=== PATIENT | male | born 1945 | race Caucasian/White ===

== ENCOUNTER → 2021-09-11 | Outpatient (CLI) | payer MEDICARE ==
[2021-09-11 10:15] LABS: African American GFR (CKD) >90 (>60 ml/min/1.73 sqM); Blood Urea Nitrogen 17 mg/dL (9-20); Non-African American GFR(CKD) >90 (>60 ml/min/1.73 sqM)
--- NOTE | 2021-09-11 23:09 | CT ---
EXAMINATION TYPE: CT Chest Abd Pelvis w con DATE OF EXAM: 09/11/2021 COMPARISON: None available HISTORY: Esophageal CA CT DLP: 1277.60 mGycm. Automated Exposure Control for Dose Reduction was Utilized. TECHNIQUE: Multiple contiguous axial CT images of the chest, abdomen, and pelvis were obtained from t he lung apices through the pubic symphysis with IV Contrast, patient injected with 100 mL of Isovue 3 00. 2-D sagittal and coronal reformatted images were obtained. FINDINGS: Chest: Postsurgical changes consistent with partial esophagectomy with gastric pull-through. Cardiac size appears within normal limits. No pericardial effusion. Moderate coronary artery calcific ations. Thoracic aorta and main pulmonary arteries are of normal caliber. No mediastinal, hilar, or a xillary lymphadenopathy. Central airways are normal course and caliber. Lungs appear clear. No pleural effusion or pneumothora x. No suspicious pulmonary nodules. Abdomen/pelvis: Liver, spleen, pancreas, and bilateral adrenal glands have an unremarkable enhanced appearance. Gallbladder is present and contains hyperattenuating material possibly sludge. No definite intrahepat ic or extrahepatic biliary ductal dilatation. Kidneys are symmetric in size without hydronephrosis. No renal or ureteral calculi. Exophytic right r enal cyst measuring 37 mm. Urinary bladder appears over distended and otherwise unremarkable. Moderately dilated prostate gland. No free fluid. Visualized bowel is of normal caliber without evidence of obstruction. No significant mesenteric infl ammation. Appendix appears unremarkable. No free air. Mild scattered atherosclerotic vascular calcifications of the normal aorta without aneurysm. No intra -abdominal or retroperitoneal lymphadenopathy. Small fat-containing umbilical hernia which also conta ins small amount of fluid. Musculoskeletal: Visualized osseous structures appear intact. Moderate multilevel degenerative changes of the thoracol umbar spine with diffuse idiopathic skeletal hyperostosis throughout the thoracic spine. IMPRESSION: Postsurgical changes consistent with partial esophagectomy with gastric pull-through. No evidence of disease recurrence.
== END | disposition home or self-care (01) ==
LOC: RADCTMAIN 08:49
PROVIDERS: ATTEND Internal Medicine Hematology & Oncology
DX: C15.5 Malignant neoplasm of lower third of esophagus (principal); Z90.49 Acquired absence of other specified parts of digestive tract
CPT/HCPCS: 82565; 84520; 71260; 74177; 36415; Q9967

== ENCOUNTER → 2022-01-23 | Outpatient (CLI) | payer MEDICARE ==
[2022-01-23 11:39] LABS: African American GFR (CKD) >90 (>60 ml/min/1.73 sqM); Blood Urea Nitrogen 11 mg/dL (9-20); Non-African American GFR(CKD) >90 (>60 ml/min/1.73 sqM)
--- NOTE | 2022-01-24 15:07 | CT ---
EXAMINATION TYPE: CT ChestAbdPelvis w con DATE OF EXAM: 01/23/2022 INDICATION: Follow up on esophageal cancer COMPARISON: 09/11/2021 CT DLP: 1333.8 mGycm CONTRAST: Performed with Oral Contrast and with IV Contrast, patient injected with 70 mL of Isovue 300. TECHNIQUE: Axial images at 5 mm thick sections. Reconstructed images in the coronal plane. Delayed images through the kidneys. FINDINGS: CT CHEST: Portion of the thyroid visualized is normal. Some minimal pneumonitis changes within the superior segment right lower lobe. Tiny nodule medially w ithin the right midlung 0.6 cm. Series 38. This was present previously. No enlarged mediastinal or hilar adenopathy is evident. The ascending aorta diameter at the level of the main pulmonary artery is 3.9 cm. The main pulmonary artery diameter at the bifurcation is 2.4 cm. There is a gastric pull-through. Reflux into the esophagus is evident. CT ABDOMEN: Liver: Normal Spleen: Normal. Small splenule may be at the splenic hilum. Pancreas: Diffusely atrophic Adrenal glands: The adrenal glands are normal. Gallbladder: Normal Kidneys: No masses are evident. No hydronephrosis is present. There is an exophytic cyst on the pos terior superior pole right kidney measuring 3.9 cm and 43 Hounsfield units. This was present previous ly. Delayed images were obtained through the kidneys, which remain unremarkable. Aorta: Vascular calcification is within the aorta. Inferior vena cava: Normal. CT PELVIS: Loops of bowel within the abdomen and pelvis are normal. Diverticulosis is present within the sig moid colon. There are loops of bowel lacking oral contrast or incompletely distended limiting their e valuation. Appendix: Normal as visualized. Urinary bladder: Normal. Genitourinary structures: Prostate is prominent. Osseous structures: No suspicious lytic or sclerotic lesions. Degenerative disc changes is present at the L5-S1 level IMPRESSIONS: 1. 1. Postsurgical gastric pull-through. Gastroesophageal reflux into the distal esophagus is evident. 2. No suspicious change suggestive recurrent or metastatic esophageal cancer 3. Diverticulosis without acute diverticulitis. 4. Stable right renal cyst
== END | disposition home or self-care (01) ==
LOC: RADCTMAIN 10:10
PROVIDERS: ATTEND Internal Medicine Hematology & Oncology
DX: C15.5 Malignant neoplasm of lower third of esophagus (principal); K21.9 Gastro-esophageal reflux disease without esophagitis; N28.1 Cyst of kidney, acquired; K57.30 Diverticulosis of large intestine without perforation or abscess without bleeding
CPT/HCPCS: 82565; 84520; 71260; 74177; 36415; Q9967 ×2

== ENCOUNTER → 2022-04-28 | Outpatient (CLI) | payer MEDICARE ==
[2022-04-28 10:07] LABS: African American GFR (CKD) >90 (>60 ml/min/1.73 sqM); Blood Urea Nitrogen 16 mg/dL (9-20); Non-African American GFR(CKD) >90 (>60 ml/min/1.73 sqM)
--- NOTE | 2022-04-28 11:46 | CT ---
EXAMINATION TYPE: CT ChestAbdPelvis w con DATE OF EXAM: 04/28/2022 COMPARISON: 01/23/2022 HISTORY: Malignant neoplasm of lower third of esophagus CT DLP: 1399.00 mGycm CONTRAST: CT scan of the chest, abdomen and pelvis is performed with Oral Contrast and with IV Contrast, patien t injected with 70 ml mL of Isovue 300. CT Chest: LUNGS: The lungs are clear and free of infiltrate or atelectasis. No pulmonary nodule or mass is det ected. No pleural effusion or CT evidence of interstitial lung disease. MEDIASTINUM: Again noted is evidence of esophagectomy with gastric pull-through procedure. Contrast is seen within the neoesophagus up to the level of the aortic arch. Thoracic aorta is of normal calib er. The heart is not enlarged. No evidence for mediastinal mass or adenopathy. HILAR STRUCTURES: No evidence for mass. No hilar adenopathy is appreciated. OTHER: No significant abnormality. CONTRAST CT ABDOMEN AND PELVIS FINDINGS: LIVER/GB: No calcified gallstones. No space occupying hepatic lesion. Biliary tree is of normal ca liber. PANCREAS: No inflammation. No distinct mass. SPLEEN: No splenic enlargement. No lesion seen. ADRENALS: No nodule. No thickening. KIDNEYS/BLADDER: No hydronephrosis. No nephrolithiasis. Simple cyst right kidney is unchanged. BOWEL: Normal appendix. Normal bowel caliber. No inflammation. GENITAL ORGANS: No gross abnormality. LYMPH NODES: No greater than 1cm abdominal or pelvic lymph nodes are appreciated. AORTA: No significant abnormality. OSSEOUS STRUCTURES: Degenerative changes throughout the thoracic and lumbar spine. OTHER: No significant additional abnormality is seen. IMPRESSION: 1. Postoperative changes of esophagectomy and gastric pull-through without evidence for recurrent dis ease or metastatic disease.
== END | disposition home or self-care (01) ==
LOC: RADCTMAIN 09:15
PROVIDERS: ATTEND Internal Medicine Hematology & Oncology
DX: C15.5 Malignant neoplasm of lower third of esophagus (principal); Z90.49 Acquired absence of other specified parts of digestive tract
CPT/HCPCS: 82565; 84520; 71260; 74177; 36415; Q9967

== ENCOUNTER → 2022-09-09 | Outpatient (CLI) | payer MEDICARE ==
[2022-09-09 12:39] LABS: African American GFR (CKD) >90 (>60 ml/min/1.73 sqM); Blood Urea Nitrogen 16 mg/dL (9-20); Non-African American GFR(CKD) >90 (>60 ml/min/1.73 sqM)
--- NOTE | 2022-09-09 14:50 | CT ---
EXAMINATION TYPE: CT ChestAbdPelvis w con DATE OF EXAM: 09/09/2022 COMPARISON: 05/08/2022, 01/23/2022 HISTORY: 76-year-old male C15.5, f/u lower third esophageal ca TECHNIQUE: Contiguous axial scanning of the chest, abdomen, and pelvis performed with IV Contrast, pa tient injected with 100 mL of Isovue 300. Delayed images through the kidneys were obtained. Coronal/s agittal reconstructions performed. CT DLP: 1509.3 mGycm Automated exposure control for dose reduction was used. FINDINGS: CHEST: Heart normal size without pericardial effusion. Three-vessel coronary artery calcifications are prese nt in remarkable for coronary artery disease. Ectasia of the ascending aorta 3.8 cm. Conventional arch vessel branching anatomy. Large caliber to the main right and left pulmonary arteries measuring up to 3.0 cm suggesting underly ing pulmonary arterial hypertension. No thoracic lymphadenopathy by CT size criteria. Postsurgical change of esophagectomy of the lower two thirds segment with gastric pull-through proced ure. Slight nodular prominence at the anastomosis measures 1.6 cm and is less pronounced from prior exam, suspect some mucosal redundancy at the anastomosis. Similar fine reticular changes in the right mid and lower lung and left base. Findings suggest some u nderlying chronic fibrosis. No consolidation or pleural effusion. ABDOMEN: Mild distention of the gallbladder at 4.7 cm wide but without any surrounding inflammation. No biliar y ductal dilatation is seen. No focal liver lesion. Similar mild thickening of the left adrenal gland without discrete nodularity. Right adrenal gland, spleen, pancreas and no gross abnormality. Exophytic 3.7 cm cyst posterior right kidney. A couple small cortical cysts redemonstrated left kidne y measuring up to 1 cm. No dilated small bowel, free fluid, or free air. Some scattered prominent mesenteric lymph nodes mid and left-sided the abdomen with subtle denis mese ntery appear remains unchanged. Nodes measuring up to 9 mm. No new or enlarging mesenteric or retroperitoneal adenopathy. Normal appendix. Oral contrast progressed to the descending colon. There is scattered moderate stool. No pericolonic inflammatory change. PELVIS: Bladder urine distended. Prostatomegaly at 5.8 cm wide. Patulous left inguinal canal. Pelvic phleboli ths. No abnormal fluid collection of pelvis or pelvic lymphadenopathy. BONES: Accentuated midthoracic kyphosis. [facility] throughout the thoracic spine. Moderately advanced degenerativ e disc disease L4-L5 and L5-S1 with hypertrophic facet arthropathy. No osseous destructive process. M oderate degenerative change at both hips. IMPRESSION: 1. STATUS POST ESOPHAGECTOMY WITH GASTRIC PULL-THROUGH PROCEDURE. NO EVIDENCE FOR RECURRENT OR METAST ATIC DISEASE. 2. SOME SCATTERED PROMINENT MESENTERIC LYMPH NODES MEASURING UP TO 9 MM WITH SLIGHT DENIS MESENTERY, NONSPECIFIC AND STABLE. 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 3. CAD with 3 vessel coronary artery calcifications. Pulmonary arterial hypertension. Some mild inter stitial fibrosis in the lower lungs. DISH.
== END | disposition home or self-care (01) ==
LOC: RADCTMAIN 11:52
PROVIDERS: ATTEND Internal Medicine Hematology & Oncology
DX: C15.5 Malignant neoplasm of lower third of esophagus (principal); I25.10 Atherosclerotic heart disease of native coronary artery without angina pectoris; I27.21 Secondary pulmonary arterial hypertension; J84.10 Pulmonary fibrosis, unspecified
CPT/HCPCS: 82565; 84520; 71260; 74177; 36415; Q9967

== ENCOUNTER → 2022-10-08 | Outpatient (CLI) | payer MEDICARE | END | disposition home or self-care (01) | LOC: LABWHC1 11:16 | PROVIDERS: ATTEND Surgery | DX: Z01.818 Encounter for other preprocedural examination (principal) | CPT/HCPCS: 36415; 93005 ==

== ENCOUNTER → 2023-01-12 | Outpatient (CLI) | payer MEDICARE ==
[2023-01-12 13:00] LABS: African American GFR (CKD) >90 (>60 ml/min/1.73 sqM); Blood Urea Nitrogen 17 mg/dL (9-20); Non-African American GFR(CKD) >90 (>60 ml/min/1.73 sqM)
--- NOTE | 2023-01-12 15:41 | CT ---
EXAMINATION TYPE: CT ChestAbdPelvis w con DATE OF EXAM: 01/12/2023 COMPARISON: 09/09/2022 HISTORY: F/U ESOPHAGEAL CA CT DLP: 1867 mGycm CONTRAST: CT scan of the chest, abdomen and pelvis is performed with Oral Contrast and with IV Contrast, patien t injected with 100 mL of Isovue 300. CT Chest: LUNGS: The lungs are clear and free of infiltrate or atelectasis. No pulmonary nodule or mass is det ected. There are scattered subpleural fibrosis. No evidence of pleural effusion or volume loss. MEDIASTINUM: Gastric pull-through with partial esophagectomy. Overall appearance is stable relative t o the prior study. No evidence for recurrent or residual mass. Thoracic aorta is of normal caliber. M ild cardiomegaly with three-vessel coronary artery disease. No evidence for mediastinal mass or adeno nirmala. HILAR STRUCTURES: No evidence for mass. No hilar adenopathy is appreciated. OTHER: No significant abnormality. CONTRAST CT ABDOMEN AND PELVIS FINDINGS: LIVER/GB: No calcified gallstones. No space occupying hepatic lesion. Biliary tree is of normal ca liber. PANCREAS: No inflammation. No distinct mass. SPLEEN: No splenic enlargement. No lesion seen. ADRENALS: No nodule. No thickening. KIDNEYS/BLADDER: No hydronephrosis. No nephrolithiasis. Exophytic right renal cyst is unchanged. GERMAINE WEL: Normal appendix. Normal bowel caliber. No inflammation. GENITAL ORGANS: Prostate gland enlargement redemonstrated. LYMPH NODES: No greater than 1cm abdominal or pelvic lymph nodes are appreciated. AORTA: No significant abnormality. OSSEOUS STRUCTURES: Accentuated midthoracic kyphosis. [facility] throughout the thoracic spine. Moderately advanced degenerative disc disease L4-L5 and L5-S1 with hypertrophic facet arthropathy. No osseous d estructive process. Moderate degenerative change at both hips. OTHER: No significant additional abnormality is seen. IMPRESSION: 1. Partial esophagectomy with gastric pull-through without evidence for tumor recurrence. 2. No evidence for metastatic disease this time.
== END | disposition home or self-care (01) ==
LOC: RADCTMAIN 11:59
PROVIDERS: ATTEND Internal Medicine Hematology & Oncology
DX: C15.5 Malignant neoplasm of lower third of esophagus (principal); M12.9 Arthropathy, unspecified; R13.10 Dysphagia, unspecified; Z71.3 Dietary counseling and surveillance; Z90.49 Acquired absence of other specified parts of digestive tract
CPT/HCPCS: 82565; 84520; 71260; 74177; 36415; Q9967

== ENCOUNTER → 2023-05-20 | Outpatient (CLI) | payer MEDICARE ==
[2023-05-20 10:02] LABS: African American GFR (CKD) >90 (>60 ml/min/1.73 sqM); Blood Urea Nitrogen 13 mg/dL (9-20); Non-African American GFR(CKD) >90 (>60 ml/min/1.73 sqM)
--- NOTE | 2023-05-22 08:20 | CT ---
EXAMINATION TYPE: CT ChestAbdPelvis w con DATE OF EXAM: 05/20/2023 COMPARISON: Most recent prior CT January 12, 2023 and older studies HISTORY: esophageal ca, obs for mets CT DLP: 1932.20 mGycm. Automated Exposure Control for Dose Reduction was Utilized. CONTRAST: CT scan of the thorax, abdomen and pelvis is performed with IV Contrast, patient injected with 100ml mL of Isovue 300. FINDINGS: LUNGS: The lungs are grossly clear, there is no concerning new greater than 5 mm parenchymal mass or nodule identified. There is no pleural effusion or pneumothorax seen. The tracheobronchial tree is patent. MEDIASTINUM: There are no greater than 1 cm hilar or mediastinal lymph nodes. No cardiomegaly or pe ricardial effusion is seen. Coronary artery calcification is redemonstrated. Surgical changes from es ophagectomy and gastric pull-up procedure are redemonstrated . LIVER/GB: Gallbladder remains hyperdense suggesting diffuse sludge filling. PANCREAS: Moderate generalized atrophy redemonstrated. SPLEEN: No significant abnormality is seen. ADRENALS: No significant abnormality is seen. KIDNEYS: Exophytic simple appearing thin-walled cyst right kidney posteriorly axial image 74 redemons trated. BOWEL: Oral contrast does not reach level of the terminal ileum. No abnormal small or large bowel dil atation is seen. GENITAL ORGANS: Enlarged prostate consistent with BPH is redemonstrated. LYMPH NODES: No greater than 1cm abdominal or pelvic lymph nodes are appreciated. OSSEOUS STRUCTURES: Bridging osteophytes in the thoracic spine are redemonstrated. In space narrowing with vacuum disc phenomenon in the lower lumbar spine is redemonstrated. Moderate narrowing in both hip joints again seen. OTHER: Stable 2.5 cm low dense lesion anterior to the IVC axial image 84 favoring thin-walled cystic lesion unchanged from several prior studies presumed benign. IMPRESSION: Posttreatment changes redemonstrated. No new mass or adenopathy clearly seen to suggest a ctive neoplastic recurrence.
== END | disposition home or self-care (01) ==
LOC: RADCTMAIN 09:15
PROVIDERS: ATTEND Internal Medicine Hematology & Oncology
DX: C15.5 Malignant neoplasm of lower third of esophagus (principal); M12.9 Arthropathy, unspecified; R13.10 Dysphagia, unspecified; Z71.3 Dietary counseling and surveillance
CPT/HCPCS: 82565; 84520; 71260; 74177; 36415; Q9967

== ENCOUNTER 2023-09-07 09:55 | Day surgery (SDC) | payer MEDICARE ==
[2023-09-03 11:25] VITALS: BMI 29.0
[~2023-09-07 09:55] MED LIST: ALPRAZolam 0.25 MG TAB PO PRN; ALPRAZolam 0.5 MG TAB PO PRN; ASPIRIN 325 MG TAB PO STA; NITROGLYCERIN SL TABS 0.4 MG TAB SUBLINGUAL PRN; SODIUM CHLORIDE 0.9% 1,000 ML in EMPTY BAG 1 BAG IV SCH
[2023-09-07] MEDS: SODIUM CHLORIDE 0.9% 1,000 ML IV ONE (10:15)
[2023-09-07 10:47] LABS: Basophils # (A) 0.1 k/uL (0-0.2); Basophils % (A) 1 %; Eosinophils # (A) 0.2 k/uL (0-0.7); Eosinophils % (A) 3 %; HCT 45.6 % (39.0-53.0); Lymphocytes # (A) 2.4 k/uL (1.0-4.8); Lymphocytes % (A) 31 %; MCH 32.2 pg (25.0-35.0); MCHC 32.9 g/dL (31.0-37.0); MCV 98.1 fL (80.0-100.0); Mean Platelet Volume 7.7; Monocytes # (A) 0.6 k/uL (0-1.0); Monocytes % (A) 8 %; Neutrophils # (A) 4.1 k/uL (1.3-7.7); Neutrophils % (A) 53 %; Platelet Count 211 k/uL (150-450); RBC 4.65 m/uL (4.30-5.90); RDW 13.4 % (11.5-15.5); WBC 7.7 k/uL (3.8-10.6)
[2023-09-07 10:57] LABS: African American GFR (CKD) >90 (>60 ml/min/1.73 sqM); Anion Gap 7 mmol/L; Blood Urea Nitrogen 14 mg/dL (9-20); Calcium 9.4 mg/dL (8.4-10.2); Carbon Dioxide 25 mmol/L (22-30); Chloride 106 mmol/L (98-107); Glucose 96 mg/dL (74-99); Non-African American GFR(CKD) >90 (>60 ml/min/1.73 sqM); Potassium 4.1 mmol/L (3.5-5.1); Sodium 138 mmol/L (137-145)
[2023-09-07 11:22] VITALS: RESP 18; TEMP 98.5
[2023-09-07] MEDS ORDERED: fentaNYL (PF) 50 MCG/ML 2 ML AMP ONE (13:18)
[2023-09-07] MEDS ORDERED: VERAPAMIL 2.5 MG/ML 2 ML AMP ONE (13:18)
[2023-09-07] MEDS ORDERED: HEPARIN SODIUM 1,000 UN/ML (10ML VL) ONE (13:18)
[2023-09-07] MEDS ORDERED: LIDOCAINE 1% INJ 10MG/ML (20 ML MDV) ONE (13:18)
[2023-09-07] MEDS: MIDAZOLAM 2 MG/2 ML VIAL IVP ONE (13:35)
[2023-09-07] MEDS: fentaNYL (PF) 50 MCG/ML 2 ML AMP IVP ONE ×2 (13:35)
[2023-09-07] MEDS: LIDOCAINE 1% INJ 10MG/ML (20 ML MDV) SQ ONE (13:42)
[2023-09-07] MEDS: VERAPAMIL SYRINGE (5 MG/10 ML) INTRAARTER ONE ×2 (13:43→13:47)
[2023-09-07] MEDS: HEPARIN SODIUM 1,000 UN/ML (10ML VL) IVP ONE (13:46)
[2023-09-07] MEDS ORDERED: CLOPIDOGREL 75 MG TAB ONE (14:01)
[2023-09-07] MEDS: CLOPIDOGREL 75 MG TAB PO ONE (14:02)
[2023-09-07] MEDS: IOPAMIDOL-370 100ML BTL INJ ONE ×2 (14:04→14:32)
[2023-09-07] MEDS: NITROGLYCERIN 1000MCG/10ML SYRINGE INTRACORON ONE (14:19)
[2023-09-07] MEDS ORDERED: ZOLPIDEM 5 MG TAB PO PRN (14:39)
[2023-09-07] MEDS ORDERED: RX INFO: IV CONTRAST WAS GIVEN 1 EACH MISC MISCELLANE PRN (14:39)
[2023-09-07] MEDS ORDERED: ATROPINE SULFATE 0.1 MG/ML 10ML SYRINGE IV PRN (14:39)
[2023-09-07] MEDS ORDERED: MAG HYDROX/AL HYDROX/SIMETH 30 ML CUP PO PRN (14:39)
--- NOTE | 2023-09-07 16:39 | P.PRCINT ---
Percutaneous Coronary Int. - Percutaneous Coronary Intervention Percutaneous Coronary Intervention: PROCEDURES PERFORMED: Left heart catheterization, bilateral coronary angiography, ultrasound guided arterial access, iFR circumflex, PCI proximal to mid circumflex with overlapping 3.0 x 38mm and 2.75 x 8mm Xience HE, post dilated with a 3.25mm NC balloon, intravascular ultrasound circumflex INDICATION: abnormal stress test, dyspnea on exertion, [place] [employer] class II symptoms PROCEDURE: After the risks, benefits and alternatives of the above mentioned procedure explained in detail with the patient, informed consent was obtained. Patient was taken to the catheterization lab and prepped and draped in usual fashion. Ultrasound guidance was used to assess for arterial access. 1% lidocaine was used to anesthetize the right radial artery. A 6-Qatari sheath was placed in the right radial artery using modified Seldinger technique and ultrasound guidance. Left coronary angiography was performed with a 5-Qatari JL 3.5 catheter and right coronary angiography was performed with a 5-Qatari FR5 ca theter in various views. A 5-Qatari FR5 catheter was inserted into the left ventricle and pressure measurements were obtained. the decision was made to perform iFR of the RCA. A 6-Qatari CLS 3.5 guide was easy to engage the left main. A 0.014 pressure wire was advanced into the proximal left main and then normalized. It was then advanced 1 cm distal to the long circumflex lesion. iFR was abnormal at 0.77. Therefore the decision was made to perform PCI of the circumflex. A 0.014 BMW wire was advanced into the distal circumflex. Predilatation was performed with a 3.0 noncompliant balloon. Intravascular ultrasound showed diffuse calcification. Next a 3.0 x 38 mm drug-eluting stent was placed in the proximal to mid circumflex. There was some geographic mass at the distal edge and therefore a 2.75 x 8 mm drug-eluting stent was placed overlapping the first stent. Both stents were postdilated with a 3.25 noncompliant balloon. Repeat intravascular ultrasound showed well- expanded stent with no dissection. Final angiograms were performed. Pre- intervention there was 80% stenosis and SABINA-3 flow and postintervention there was less than 10% stenosis with SABINA 3 flow. The right radial sheath was removed and a TR band was placed with hemostasis achieved. The patient tolerated the procedure well. Patient was transported back to the post catheterization holding area in stable condition. Conscious Sedation: Patient was monitored under the direct supervision of myself for conscious sedation using Versed and fentanyl for a total duration of 48 minutes HEMODYNAMICS: aorta: 142/78 LV:137/7, LVEDP 18 SELECTIVE CORONARY ARTERIOGRAPHY: LEFT MAIN: The left main is a large caliber vessel which bifurcates into the LAD and circumflex. There is distal left main 20-30% stenosis. LEFT ANTERIOR DESCENDING CORONARY ARTERY: LAD is a large caliber vessel which wraps around to the apex. There are mild luminal irregularities of the LAD. There are [id number] collaterals. LEFT CIRCUMFLEX CORONARY ARTERY: Left circumflex is a moderate caliber vessel with tandem proximal 80% and mid 80% circumflex stenosis RIGHT CORONARY ARTERY: The right coronary artery is a large caliber vessel which gives off a PDA and PLV branch and is the dominant vessel. There is 100% mid RCA stenosis. FINAL IMPRESSION: 1. CAD as described above including 20-30% left main stenosis, 100% [employer] RCA, 80% circumflex stenosis 2. Mildly elevated left sided filling pressures 3. S/p PCI proximal to mid circumflex with overlapping 3.0 x 38mm and 2.75 x 8mm Xience HE, post dilated with a 3.25mm NC balloon PLAN: 1. Aggressive risk factor modification per most recent ACC/AHA guidelines. 2. Continue dual antiplatelets with aspirin and Plavix for 6 months.
[2023-09-07 17:14] VITALS: BP 112/60; PULSE 63
[2023-09-07] MEDS ORDERED: ATORVASTATIN 40 MG TAB PO SCH (21:00)
[2023-09-08] MEDS ORDERED: CLOPIDOGREL 75 MG TAB PO SCH (09:00)
[2023-09-08] MEDS ORDERED: ASPIRIN 81 MG PO SCH (09:00)
== END 2023-09-07 17:36 | disposition home or self-care (01) ==
LOC: CATHCVL 09:55
PROVIDERS: ATTEND Internal Medicine
DX: I25.10 Atherosclerotic heart disease of native coronary artery without angina pectoris (principal); I10 Essential (primary) hypertension; E78.2 Mixed hyperlipidemia; F17.210 Nicotine dependence, cigarettes, uncomplicated; Z95.5 Presence of coronary angioplasty implant and graft; Z79.899 Other long term (current) drug therapy
CPT/HCPCS: 92978; 93458; 93799; 76937; 80048; 85025; C9600; C1769 ×3; C1887 ×2; C1894; C1753; C1874 ×2; C1725 ×2; J2250; J2001; J3010; J1644; Q9967; J2305

== ENCOUNTER → 2023-09-09 | Outpatient (CLI) | payer MEDICARE | END | disposition home or self-care (01) | LOC: LABWHC1 11:03 | PROVIDERS: ATTEND Internal Medicine | DX: Z96.0 Presence of urogenital implants (principal) | CPT/HCPCS: 36415; 82565 ==

== ENCOUNTER → 2023-09-15 | Outpatient (CLI) | payer MEDICARE ==
[2023-09-15 12:23] LABS: African American GFR (CKD) >90 (>60 ml/min/1.73 sqM); Blood Urea Nitrogen 15 mg/dL (9-20); Non-African American GFR(CKD) >90 (>60 ml/min/1.73 sqM)
--- NOTE | 2023-09-15 14:00 | CT ---
EXAMINATION TYPE: CT ChestAbdPelvis w con CT DLP: 1988 mGycm, Automated exposure control for dose reduction was used. DATE OF EXAM: 09/15/2023 1:52 PM COMPARISON: 05/20/2023 CLINICAL INDICATION:Male, 77 years old with history of C15.5 ESOPHAGEAL CA; PHH, Hx esophageal ca, ro utine follow up Technique: CT ChestAbdPelvis w con; Multiple axial images were obtained. Two-dimensional coronal and sagittal reconstructions were obtained. Contrast used:100 mL of Isovue 300 with IV Contrast, Oral contrast used: with Oral Contrast Findings: CHEST: LUNGS/ PLEURA: No pulmonary nodules, no evidence for focal consolidation, pneumothorax or pleural eff usion. AIRWAY: Patent and unremarkable. HEART: Size within normal limits. MEDIASTINUM: Of postrenal changes with esophagectomy gastric pull-through. VASCULATURE: No aortic aneurysm. MUSCULOSKELETAL: No acute osseous abnormalities. SOFT TISSUES/LYMPH NODES: Unremarkable. LOWER NECK: No significant findings. ABDOMEN: ABDOMEN LIVER: Unremarkable GALLBLADDER AND BILE DUCTS: Unremarkable. PANCREAS: Unremarkable. SPLEEN: Unremarkable. ADRENAL GLANDS: Unremarkable. KIDNEYS AND URETERS: No evidence of hydronephrosis or renal calculus. The ureters are unremarkable. Peripelvic renal cysts bilaterally and right renal cortical cyst. PELVIS BLADDER: Unremarkable REPRODUCTIVE: Prostate is enlarged in size measuring 6.0 cm in transverse dimension. ABDOMEN & PELVIS STOMACH AND BOWEL: No evidence of bowel obstruction. Large stool burden throughout the colon.r PERITONEUM: No evidence of pneumoperitoneum or free fluid. Similar denis mesentery. VASCULATURE: Mild atherosclerotic calcifications are present throughout the abdominal aorta and its b ranches. MUSCULOSKELETAL: No acute osseous abnormalities LYMPH NODES: No gross evidence for lymphadenopathy. SOFT TISSUE/ABDOMINAL WALL: Fat-containing inguinal hernia on the right. Left inguinal region anterio r anchors possibly representing prior surgery. IMPRESSION: 1. Posttreatment changes redemonstrated with the esophagectomy and gastric pull-through. No new mass or lymphadenopathy clearly seen to suggest active neoplastic recurrence. 2. Large stool burden throughout the colon. 3. Prostatomegaly, correlate with serum PSA.
== END | disposition home or self-care (01) ==
LOC: RADCTMAIN 11:40
PROVIDERS: ATTEND Internal Medicine Hematology & Oncology
DX: C15.5 Malignant neoplasm of lower third of esophagus (principal); R13.10 Dysphagia, unspecified; Z71.3 Dietary counseling and surveillance; M12.9 Arthropathy, unspecified
CPT/HCPCS: 82565; 84520; 71260; 74177; 36415; Q9967

== ENCOUNTER → 2023-11-12 | Outpatient (CLI) | payer MEDICARE ==
[2023-11-12 14:52] LABS: ALT 23 U/L (10-49); AST 36 U/L (14-35); Chol/HDL Ratio 2.79 Ratio; LDL Cholesterol,Calculated 122.8 mg/dL (0.0-131.0)
== END | disposition home or self-care (01) ==
LOC: LABWHC1 09:47
PROVIDERS: ATTEND Internal Medicine
DX: E78.2 Mixed hyperlipidemia (principal)
CPT/HCPCS: 36415; 80061; 84450; 84460

== ENCOUNTER → 2024-03-15 | Outpatient (CLI) | payer MEDICARE ==
[2024-03-15 10:30] LABS: African American GFR (CKD) 70 (>60 ml/min/1.73 sqM); Blood Urea Nitrogen 20 mg/dL (9-20); Non-African American GFR(CKD) 60 (>60 ml/min/1.73 sqM)
--- NOTE | 2024-03-15 15:01 | CT ---
EXAMINATION TYPE: CT ChestAbdPelvis w con CT DLP: 1930.20 mGycm, Automated exposure control for dose reduction was used. DATE OF EXAM: 03/15/2024 1:11 PM COMPARISON: Multiple CT Chest Abdomen Pelvis with most recent 09/15/2023. CLINICAL INDICATION:Male, 78 years old with history of C15.5 MALIGNANT NEOPLASM OF LOWER THIRD OF ESO PHAG; PHH, Hx malignant neoplasm lower third esophagus Technique: Multiple axial images of the chest, abdomen, and pelvis were obtained following the intrav enous administration of 100 mL Isovue-300. Oral contrast was administered. Two-dimensional coronal an d sagittal reconstructions were obtained. Findings: CHEST: LUNGS/ PLEURA: No pulmonary nodules or masses. No evidence for focal consolidation, pneumothorax or p leural effusion. Minimal bibasilar subsegmental atelectasis. AIRWAY: Patent and unremarkable. HEART: Size within normal limits. No pericardial effusion MEDIASTINUM: Postsurgical changes with esophagectomy gastric pull-through. No adenopathy identified. VASCULATURE: No aortic aneurysm. MUSCULOSKELETAL: No acute osseous abnormalities. DISH of the thoracic spine. SOFT TISSUES/LYMPH NODES: Unremarkable. LOWER NECK: No significant findings. ABDOMEN: ABDOMEN LIVER: Unremarkable GALLBLADDER AND BILE DUCTS: Distended gallbladder measuring 5.3 cm in diameter with diffusely increas ed hyperdensity. PANCREAS: Moderate generalized atrophy redemonstrated. SPLEEN: Unremarkable. ADRENAL GLANDS: Unremarkable. KIDNEYS AND URETERS: There is decreased enhancement of the right kidney compared to the left. No left hydronephrosis. Moderate right hydronephrosis. No hydroureter identified. No obstructing calculus id entified. Contrast is demonstrated only within the left collecting system on the delayed phase. Stabl e posterior right mid kidney exophytic 3.6 cm lesion which is not consistent with a simple cyst. Prob able hemorrhagic/proteinaceous cyst due to stability dating back to 2021 PELVIS BLADDER: Similar minimal wall thickening along the anterior left lateral aspect which may be sequelae of left inguinal hernia repair. REPRODUCTIVE: Prostate is enlarged in size measuring 5.4 cm in transverse dimension. ABDOMEN & PELVIS STOMACH AND BOWEL: Postsurgical changes from esophagectomy and gastric pull-through. Periampullary du odenal diverticulum containing fluid measuring up to 1.9 cm. There is a 2.9 cm cyst posterior and inf erior to the duodenum demonstrated. Previously measured up to 2.5 cm. No evidence of bowel obstructio n. Large stool burden throughout the colon. Enteric contrast reaches the mid to distal small bowel. PERITONEUM: No evidence of pneumoperitoneum or free fluid. Similar denis mesentery. VASCULATURE: Mild atherosclerotic calcifications are present throughout the abdominal aorta and its b ranches. No abdominal aortic aneurysm. MUSCULOSKELETAL: No acute osseous abnormalities. Multilevel degenerative disc disease and facet arthr opathy. Mild osteoarthritic changes both hips. LYMPH NODES: No evidence for lymphadenopathy. SOFT TISSUE/ABDOMINAL WALL: Fat-containing inguinal hernia on the right. Left inguinal region anterio r anchors possibly representing prior surgery. Tiny fat filled umbilical hernia. IMPRESSION: 1. Posttreatment changes redemonstrated with the esophagectomy and gastric pull-through. No new mass or lymphadenopathy clearly seen to suggest active neoplastic recurrence. 2. Worsening moderate right hydronephrosis without obstructing calculus. Delayed enhancement with la ck of contrast excretion on delayed phase compared to the left kidney. May relate to UPJ stricture. U rology consult is recommended. 3. Distended hyperdense hydropic gallbladder without surrounding inflammatory changes. Consider furt her evaluation with ultrasound if there is clinical concern for acute cholecystitis. [facility], , 03/15/2024 2:59 PM
== END | disposition home or self-care (01) ==
LOC: RADCTMAIN 09:51
PROVIDERS: ATTEND Internal Medicine Hematology & Oncology
CPT/HCPCS: 36415; 71260; 74177; 82565; 84520

== ENCOUNTER 2024-03-27 14:04 | Emergency (ER) | payer MEDICARE ==
[2024-03-27] MEDS ORDERED: BARIUM SULFATE 2% - 450 ML ORAL.SUSP BOTTLE PO PRN (14:25)
[2024-03-27] MEDS: SODIUM CHLORIDE 0.9% 1,000 ML IV STA ×2 (14:48→18:38)
[2024-03-27 14:59] LABS: Basophils % (A) 0 %; Eosinophils # (A) 0.1 k/uL (0-0.7); Eosinophils % (A) 1 %; HCT 41.7 % (39.0-53.0); HGB 13.5 gm/dL (13.0-17.5); Lymphocytes % (A) 12 %; MCHC 32.4 g/dL (31.0-37.0); MCV 98.7 fL (80.0-100.0); Mean Platelet Volume 7.2; Monocytes # (A) 0.7 k/uL (0-1.0); Monocytes % (A) 8 %; Neutrophils # (A) 6.3 k/uL (1.3-7.7); Neutrophils % (A) 77 %; Platelet Count 243 k/uL (150-450); RBC 4.22 m/uL (4.30-5.90); RDW 12.6 % (11.5-15.5); WBC 8.2 k/uL (3.8-10.6)
--- NOTE | 2024-03-27 15:09 | ED ---
Nausea/Vomiting/Diarrhea HPI - General Source: patient, RN notes reviewed Mode of arrival: ambulatory Limitations: no limitations - History of Present Illness MD complaint: vomiting, abdominal pain Onset/Timin -: days(s) Description of Vomiting: food contents Associated Abdominal Pain: Yes (Cramping only with vomiting) Quality: cramping Worsens with: eating, vomiting Context: history of abdominal surgery <Lucio Solomon - Last Filed: 03/27/24 23:30> <Be Paula - Last Filed: 03/28/24 00:45> - General Chief complaint: Nausea/Vomiting/Diarrhea Stated complaint: vomiting for 3days Time Seen by Provider: 03/27/24 14:21 - History of Present Illness Initial comments: This is a 78-year-old male with history of esophageal cancer and abdominal surgery presenting with vomiting x 3 days. Patient endorses forceful and projectile vomiting following meals and fluid intake, preventing adequate ingestion and digestion of food and fluid. Patient states symptoms started 1 week ago but have worsened over the past few days. Patient has history of I have or Royce procedure as treatment for stage I esophageal cancer at [facility] [address] Hayden who no longer works there. Patient states he has since been following up with Dr. Charles via telemedicine, having last spoke to him in October 2023.. Patient states he normally sees Dr. Blunt but was referred to Dr. Alexis for an endoscopy on April 04. States due to the severity of vomiting and inability to consume calories and he is unable to wait until the for the endoscopy. Patient endorses vomiting only after eating and abdominal pain only due to a forceful vomiting. Patient otherwise denies nausea or constant abdominal pain. Patient endorses no bowel movement/constipation and no flatus for the past 3 days, likely due to inability to retain ingested food. Patient denies fever, chills, hematemesis, hematochezia, chest pain, dyspnea, diarrhea, dizziness. Phone number for [facility] thoracic surgery department, attention Dr. Vasquez, is [phone] (Lucio Solomon) - Related Data Home Medications Medication Instructions Recorded Confirmed Omeprazole Magnesium [PriLOSEC OTC] 20 mg PO DAILY 09/03/23 03/27/24 Aspirin 81 mg PO DAILY 09/07/23 03/27/24 Sucralfate [Carafate] 1 gm PO BID 03/27/24 03/27/24 Previous Rx's Medication Instructions Recorded Clopidogrel [Plavix] 75 mg PO DAILY #90 tab 09/07/23 Allergies Allergy/AdvReac Type Severity Reaction Status Date / Time No Known Allergies Allergy Verified 03/27/24 16:04 Review of Systems ROS Other: All systems not noted in ROS Statement are negative. <NehaLucio - Last Filed: 03/27/24 23:30> ROS Other: All systems not noted in ROS Statement are negative. <Be Paula - Last Filed: 03/28/24 00:45> ROS Statement: Those systems with pertinent positive or pertinent negative responses have been documented in the HPI. Past Medical History Past Medical History: Cancer, GERD/Reflux, Hearing Disorder / Deafness Additional Past Medical History / Comment(s): See Cardiology H&P. Hx esophageal cancer with surgery 06/06/21. Bilateral hearing aid use. History of Any Multi-Drug Resistant Organisms: None Reported Past Surgical History: Back Surgery, Hernia Repair, Joint Replacement Additional Past Surgical History / Comment(s): Esophageal surgery, bilateral knee replacements, bilateral cataract surgery. Past Anesthesia/Blood Transfusion Reactions: No Reported Reaction Past Psychological History: No Psychological Hx Reported Smoking Status: Current some day smoker Past Alcohol Use History: Occasional Past Drug Use History: None Reported - Past Family History Father Family Medical History: Cancer Additional Family Medical History / Comment(s): Prostate cancer. <Lucio Solomon - Last Filed: 03/27/24 23:30> General Exam Limitations: no limitations General appearance: alert, in no apparent distress Head exam: Present: atraumatic, normocephalic, normal inspection Eye exam: Present: normal appearance, PERRL, EOMI. Absent: scleral icterus, conjunctival injection, periorbital swelling ENT exam: Present: normal exam, mucous membranes moist Neck exam: Present: normal inspection. Absent: tenderness, meningismus, lymphadenopathy Respiratory exam: Present: normal lung sounds bilaterally. Absent: respiratory distress, wheezes, rales, rhonchi, stridor Cardiovascular Exam: Present: regular rate, normal rhythm, normal heart sounds. Absent: systolic murmur, diastolic murmur, rubs, gallop, clicks GI/Abdominal exam: Present: soft (Soft and nontender tender abdomen throughout without tympanic or rebound tenderness.), hypoactive bowel sounds (No bowel sounds auscultated). Absent: distended, tenderness, guarding, rebound, rigid, pulsatile mass, hernia Extremities exam: Present: normal inspection, full ROM, normal capillary refill. Absent: tenderness, pedal edema, joint swelling, calf tenderness Back exam: Present: normal inspection Neurological exam: Present: alert, oriented X3, CN II-XII intact Psychiatric exam: Present: normal affect, normal mood Skin exam: Present: warm, dry, intact, normal color. Absent: rash <Lucio Solomon - Last Filed: 03/27/24 23:30> Course Vital Signs 03/27/24 03/27/24 03/27/24 14:07 14:31 16:37 Temperature 98.3 F 98.1 F Pulse Rate 98 81 79 Respiratory 20 18 18 Rate Blood Pressure 175/96 150/91 140/50 O2 Sat by Pulse 99 97 96 Oximetry 03/27/24 18:10 Temperature 97.2 F L Pulse Rate 84 Respiratory 18 Rate Blood Pressure 155/95 O2 Sat by Pulse 96 Oximetry Medical Decision Making - Lab Data Result diagrams: 03/27/24 14:51 03/27/24 14:51 <Lucio Solomon - Last Filed: 03/27/24 23:30> - Lab Data Result diagrams: 03/27/24 14:51 03/27/24 14:51 <Be Paula - Last Filed: 03/28/24 00:45> - Medical Decision Making Was pt. sent in by a medical professional or institution (, PA, ENTERPRISE RECORDS ANALYST, urgent care, hospital, or intermediate...) When possible be specific @ -No Did you speak to anyone other than the patient for history (EMS, parent, family, police, friend...)? What history was obtained from this source @ -No Did you review nursing and triage notes (agree or disagree)? Why? @ -I reviewed and agree with nursing and triage notes Were old charts reviewed (outside hosp., previous admission, EMS record, old EKG, old radiological studies, urgent care reports/EKG's, intermediate records)? Report findings @ -No old charts were reviewed Differential Diagnosis (chest pain, altered mental status, abdominal pain women, abdominal pain men, vaginal bleeding, weakness, fever, dyspnea, syncope, headache, dizziness, GI bleed, back pain, seizure, CVA, palpatations, mental health, musculoskeletal)? @ -Differential Abdominal Pain Men: Appendicitis, cholecystitis, diverticulosis, ischemic bowel, pancreatitis, hepatitis, UTI, gastroenteritis, AAA, incarcerated hernia, bowel obstruction, constipation, inflammatory bowel, hepatitis, peptic ulcer disease, splenic infarction, perforated viscus, testicular torsion, this is not meant to be an all-inclusive list EKG interpreted by me (3pts min.). @ -Not done X-rays interpreted by me (1pt min.). @ -None done CT interpreted by me (1pt min.). @ -Abdominal CT shows gastric contents within the stomach located in thoracic cavity with eventual cessation of food content/stool in small and large colon. U/S interpreted by me (1pt. min.). @ -None done What testing was considered but not performed or refused? (CT, X-rays, U/S, labs)? Why? @ -Barium swallow study requested by Dr. Vasquez [place] for unable to be performed today. Patient must wait until morning to have study performed. What meds were considered but not given or refused? Why? @ -None Did you discuss the management of the patient with other professionals (professionals i.e. DrKaty, PA, ENTERPRISE RECORDS ANALYST, lab, RT, psych nurse, social problems specialist, biomass power plant manager, teacher, housing management officer, case management manager)? Give summary @ -Spoke to Dr. Vasquez of [facility] thoracic surgery department who requested a barium swallow study to confirm or exclude bowel obstruction as cause of patient's current symptoms. Spoke to Dr. George via [facility] emergency department who advised to contact surgery regarding patient's condition. Spoke to Dr. Leonard he is surgery who advised transfer to [facility] since patient's surgery is outside of the scope at this hospital. Spoke to Dr. Vasquez of [place] who requested barium swallow study or upper GI study prior to transfer to confirm obstruction. Will attempt chest CT with oral Isovue contrast as radiologist is unavailable this evening. Was smoking cessation discussed for >3mins.? @ -No Was critical care preformed (if so, how long)? @ -No Were there social determinants of health that impacted care today? How? (Homeles sness, low income, unemployed, alcoholism, drug addiction, transportation, low edu. Level, literacy, decrease access to med. care, skilled nursing, rehab)? @ -No Was there de-escalation of care discussed even if they declined (Discuss DNR or withdrawal of care, Hospice)? DNR status @ -No What co-morbidities impacted this encounter? (DM, HTN, Smoking, COPD, CAD, Cancer, CVA, ARF, Chemo, Hep., AIDS, mental health diagnosis, sleep apnea, morbid obesity)? @ -Esophageal cancer with abdominal surgery Was patient admitted / discharged? Hospital course, mention meds given and route, prescriptions, significant lab abnormalities, going to OR and other pertinent info. @ -Patient's lab work shows decreased renal function indicating ADRI as compared to previous renal function testing. Patient started on IV normal saline given a total of 2000 mL. Patient also given IV Pepcid and Protonix. Patient's [place] Royce procedure was 2 years ago at [facility] and performed by Dr. Tillman who no longer works there. Patient has since been following up with Dr. Charles and was last seen via telemed in October 2023. Spoke to Dr. Vasquez through [facility] who advised barium contrast study for a definitive diagnosis prior to transfer. Due to complexity of patient's surgery [facility] medicine and surgery would prefer patient be transferred to [facility] at [facility] with like a more definitive diagnosis through imaging prior to transfer. Patient started on IV D50 with normal saline. CT swallow study shows possible stricture/obstruction at the level of diaphragm. Dr. Hensley via [facility] contacted and patient handoff to Dr. Paula performed Undiagnosed new problem with uncertain prognosis? @ -Yes Drug Therapy requiring intensive monitoring for toxicity (Heparin, Nitro, Insulin, Cardizem)? @ -No Were any procedures done? @ -No Diagnosis/symptom? @ -Possible bowel obstruction Acute, or Chronic, or Acute on Chronic? @ -Acute Uncomplicated (without systemic symptoms) or Complicated (systemic symptoms)? @ -Complicated Side effects of treatment? @ -No Exacerbation, Progression, or Severe Exacerbation? @ -Severe exacerbation Poses a threat to life or bodily function? How? (Chest pain, [place], [place], pneumonia, PE, COPD, DKA, ARF, appy, cholecystitis, CVA, Diverticulitis, Homicidal, Suicidal, threat to staff... and all critical care pts) @ -Yes unable to obtain necessary caloric intake for metabolic function. ADRI possibly due to dehydration. (Lucio Solomon) Following the patient's CT scan I discussed the case with the transfer line at [facility]. Spoke with who will accept transfer. (Be Paula) - Lab Data Lab Results 03/27/24 03/27/24 03/27/24 Range/Units 14:51 14:51 14:51 WBC 8.2 (3.8-10.6) k/uL RBC 4.22 L (4.30-5.90) m/uL Hgb 13.5 (13.0-17.5) gm/dL Hct 41.7 (39.0-53.0) % MCV 98.7 (80.0-100.0) fL MCH 32.0 (25.0-35.0) pg MCHC 32.4 (31.0-37.0) g/dL RDW 12.6 (11.5-15.5) % Plt Count 243 (150-450) k/uL MPV 7.2 Neutrophils % 77 % Lymphocytes % 12 % Monocytes % 8 % Eosinophils % 1 % Basophils % 0 % Neutrophils # 6.3 (1.3-7.7) k/uL Lymphocytes # 1.0 (1.0-4.8) k/uL Monocytes # 0.7 (0-1.0) k/uL Eosinophils # 0.1 (0-0.7) k/uL Basophils # 0.0 (0-0.2) k/uL Sodium 140 (137-145) mmol/L Potassium 4.7 (3.5-5.1) mmol/L Chloride 105 (98-107) mmol/L Carbon Dioxide 22 (22-30) mmol/L Anion Gap 13 mmol/L BUN 42 H (9-20) mg/dL Creatinine 2.15 H (0.66-1.25) mg/dL Est GFR (CKD-EPI)AfAm 33 (>60 ml/min/1.73 sqM) Est GFR (CKD-EPI)NonAf 29 (>60 ml/min/1.73 sqM) Glucose 97 (74-99) mg/dL Plasma Lactic Acid Abisai 1.3 (0.7-2.0) mmol/L Calcium 9.0 (8.4-10.2) mg/dL Total Bilirubin 1.2 (0.2-1.3) mg/dL AST 31 (17-59) U/L ALT 24 (4-49) U/L Alkaline Phosphatase 103 (38-126) U/L Total Protein 8.0 (6.3-8.2) g/dL Albumin 4.5 (3.5-5.0) g/dL Amylase 88 (30-110) U/L Lipase 232 (23-300) U/L Disposition Is patient prescribed a controlled substance at d/c from ED?: No Time of Disposition: 23:33 - Out of Hospital Transfer - Req. Specs Out of Hospital Transfer - Requested Specifics: Other Emergency Center ([facility]) <Lucio Solomon - Last Filed: 03/27/24 23:30> <Be Paula - Last Filed: 03/28/24 00:45> Clinical Impression: Esophageal stricture Disposition: OTHER INSTITUTION NOT DEFINED Condition: Fair Instructions (If sedation given, give patient instructions): Acute Nausea and Vomiting (ED) Referrals: Davon Goddard MD [Primary Care Provider] - 1-2 days
[2024-03-27 15:21] LABS: ALT 24 U/L (4-49); AST 31 U/L (17-59); African American GFR (CKD) 33 (>60 ml/min/1.73 sqM); Albumin 4.5 g/dL (3.5-5.0); Alkaline Phosphatase 103 U/L (38-126); Amylase 88 U/L (30-110); Anion Gap 13 mmol/L; Blood Urea Nitrogen 42 mg/dL (9-20); Carbon Dioxide 22 mmol/L (22-30); Chloride 105 mmol/L (98-107); Glucose 97 mg/dL (74-99); Lipase 232 U/L (23-300); Non-African American GFR(CKD) 29 (>60 ml/min/1.73 sqM); Potassium 4.7 mmol/L (3.5-5.1); Sodium 140 mmol/L (137-145); Total Bilirubin 1.2 mg/dL (0.2-1.3)
--- NOTE | 2024-03-27 16:28 | CT ---
EXAMINATION TYPE: CT abdomen pelvis wo con DATE OF EXAM: 03/27/2024 4:10 PM COMPARISON: 03/15/2024 CLINICAL INDICATION: Male, 78 years old with history of Hx of Esophageal Cancer; vomiting, esophageal ca TECHNIQUE: Axial CT abdomen pelvis wo con;Sagittal and coronal reformats were created on a separate workstation. Contrast used: mL of , (none if empty) Oral contrast used: without Oral Contrast (none if empty) CT DLP: 1176.1 mGycm, Automated exposure control for dose reduction was used. FINDINGS: LOWER CHEST: Unremarkable ABDOMEN LIVER: Unremarkable GALLBLADDER AND BILE DUCTS: Unremarkable. PANCREAS: Unremarkable. SPLEEN: Unremarkable. ADRENAL GLANDS: Unremarkable. KIDNEYS AND URETERS: Moderate right hydronephrosis and mild left hydronephrosis which are similar perico or. No obstructive calculus definitively visualized. Similar right renal hyperdense probable cyst. PELVIS BLADDER: No evidence for wall thickening or mass given limitations of exam. REPRODUCTIVE: Prostate is enlarged in size measuring 5.3 Cm in transverse dimension. ABDOMEN & PELVIS STOMACH AND BOWEL: Suspected post esophagectomy with gastric pull-through changes. There is a large a mount of ingested contents within the thoracic gastric lumen.. No evidence of bowel obstruction. PERITONEUM/RETROPERITONEUM: No evidence of pneumoperitoneum or free fluid. VASCULATURE: No evidence of aortic aneurysm. MUSCULOSKELETAL: No acute osseous abnormalities LYMPH NODES: Collection just anterior to the inferior vena cava series 201 image 49 measuring fluid u nits up to 30 mm, previously similar given differences in technique. SOFT TISSUE/ABDOMINAL WALL: Unremarkable IMPRESSION: 1. Esophagectomy with gastric pull-through. There is large amount of ingested contents within the ga stric lumen within the chest. No evidence for bowel obstruction. No new lymphadenopathy identified. 2. Stable moderate right and mild left hydronephrosis. No obstructing calculus visualized. 3. Prostatomegaly, correlate with serum PSA. 4. Stable retroperitoneal focal fluid collection anterior to the inferior vena cava. [facility], , 03/27/2024 4:25 PM
[2024-03-27 18:14] VITALS: TEMP 97.2
[2024-03-27] MEDS: PANTOPRAZOLE 40 MG/10 ML VIAL IVP STA (18:14)
[2024-03-27] MEDS: FAMOTIDINE 20 MG/2 ML VIAL IV STA (18:23)
[2024-03-27] MEDS ORDERED: IOPAMIDOL CONTRAST (ORAL USE) VIAL PO PRN (22:13)
[2024-03-27] MEDS: DEXTROSE 5%-0.9% NACL 1,000 ML IV SCH (23:35)
--- NOTE | 2024-03-27 23:56 | CT ---
ADDENDUM - Added by Pranay Bryan MD on 03/28/2024 12:06 AM (-05:00) Oral contrast was given on the CT table before the scan. This contrast is all within the stomach above the diaphragm. EXAM: CT Chest Without Intravenous Contrast CLINICAL HISTORY: Postprandial nausea/vomiting TECHNIQUE: Axial computed tomography images of the chest without intravenous contrast. CTDI is 6.5 mGy and DLP is 522.55 mGy-cm. This CT exam was performed using one or more of the following dose reduction techniques: automated exposure control, adjustment of the mA and/or kV according to patient size, and/or use of iterative reconstruction technique. COMPARISON: CT March 15, 2024 CT. FINDINGS: Lungs: Unremarkable. No mass. No consolidation. Pleural space: Unremarkable. No pneumothorax. No significant effusion. Heart: Unremarkable. No cardiomegaly. No significant pericardial effusion. Heavy significant coronary artery calcifications. Mediastinum: Previous esophagectomy with gastric pull-through. Bones/joints: Unremarkable. No acute fracture. No dislocation. Soft tissues: Unremarkable. Vasculature: Unremarkable. No thoracic aortic aneurysm. Lymph nodes: Unremarkable. No enlarged lymph nodes. IMPRESSION: No acute findings in the chest. EXAM: CT Abdomen and Pelvis Without Intravenous Contrast CLINICAL HISTORY: Postprandial nausea/vomiting TECHNIQUE: Axial computed tomography images of the abdomen and pelvis without intravenous contrast. CTDI is 6.5 mGy and DLP is 522.55 mGy-cm. This CT exam was performed using one or more of the following dose reduction techniques: automated exposure control, adjustment of the mA and/or kV according to patient size, and/or use of iterative reconstruction technique. COMPARISON: CT March 15, 2024. FINDINGS: ABDOMEN: Liver: Unremarkable. Gallbladder and bile ducts: Unremarkable. No calcified stones. No ductal dilation. Pancreas: Unremarkable. No ductal dilation. Spleen: Unremarkable. No splenomegaly. Adrenals: Unremarkable. No mass. Kidneys and ureters: Persistent severe right hydronephrosis. There is moderately severe left hydronephrosis which is new since the prior study. There is some periureteral edema; however, the ureters are not significantly dilated. No ureteral obstructing calculus is evident. Stomach and bowel: Unremarkable. No obstruction. No mucosal thickening. PELVIS: Appendix: No findings to suggest acute appendicitis. Bladder: Unremarkable. No stones. ABDOMEN and PELVIS: Intraperitoneal space: Unremarkable. No free air. No significant fluid collection. Bones/joints: No acute findings. Soft tissues: 4 x 3 cm rounded fluid collection anterior to the IVC just inferior to the duodenum. The etiology is unclear. This is unchanged from March 15, 2024 but has increased in size from September 15, 2023. Vasculature: Unremarkable. No abdominal aortic aneurysm. Lymph nodes: Unremarkable. No enlarged lymph nodes. IMPRESSION: Persistent severe right hydronephrosis. Interval development of a moderately severe left hydronephrosis. No obstructing ureteral calculus is evident. No evidence of bowel obstruction. 4 x 3 cm cystic structure between the IVC and the transverse duodenum which has increased in size from September 15, 2023. The etiology is unclear. This does not cause significant mass-effect on the duodenum. <MYCVCSECTION> Communications: 03/28/24 00:08 Call From [facility] on 03/28 00:02 (-05:00)
[2024-03-28] MEDS: ONDANSETRON 4 MG/2 ML VIAL IVP STA (00:47)
[2024-03-28] MEDS: MORPHINE SULFATE 4 MG/ML SYRINGE IV STA (00:48)
[2024-03-28 00:52] VITALS: RESP 16
[2024-03-28 00:55] VITALS: BP 146/76; PULSE 86
== END 2024-03-28 00:55 | disposition other institution (70) ==
LOC: EC 14:04
DX: K22.2 Esophageal obstruction (principal); F17.200 Nicotine dependence, unspecified, uncomplicated
CPT/HCPCS: 36415; 80053; 82150; 83605; 83690; 85025; 71250; 74176; 99285; 96374; 96375; 96361; J3490; J2470